=== PATIENT | female | born 1970 | race Caucasian/White ===

== ENCOUNTER 2021-02-28 09:25 | Inpatient (IN) | payer BC ==
[2021-02-28] VITALS (24 sets, daily range): BP systolic 96–119; BP diastolic 57–83
[~2021-02-28] VITALS: Ht 154.9 cm; Wt 81.4 kg
--- NOTE | 2021-02-28 09:40 | NUR ---
Dr. Dwyer at bedside.
--- NOTE | 2021-02-28 09:40 | NUR ---
Bleeding stopped when patient received in room 4.
[2021-02-28] MEDS ORDERED: morphine 4 MG/ML inj SYRINge IV PRN ×2 (09:50→10:50)
[2021-02-28] MEDS ORDERED: morphine 2 MG/ML inj. syringe IV PRN ×2 (09:50→10:50)
[2021-02-28] MEDS ORDERED: magnesium hydroxide 30ml (MOM) UD suspension PO PRN (09:50)
[2021-02-28] MEDS ORDERED: acetaminophen 325mg tablet PO PRN ×2 (09:50)
[2021-02-28] MEDS ORDERED: potassium Cl 20 mEq SR tablet PO PRN ×2 (09:50)
[2021-02-28] MEDS ORDERED: ondansetron/PF 4mg/2ml inj IV PRN ×2 (09:50→10:50)
--- NOTE | 2021-02-28 09:52 | NUR ---
no use of femstop per Dr. Dwyer just direct pressure when starts bleeding again,pt to OR this afternoon per MD.Change dressing to dry kerlix.
[2021-02-28 09:53] LABS: BASOPHILS # (AUTO) 0.1 X10'3 (0-0.2); BASOPHILS % (AUTO) 0.4 % (0-1); EOSINOPHILS % (AUTO) 0.3 % (0-6); HEMATOCRIT 27.8 % (35.0-45.0); HEMOGLOBIN 8.9 g/dl (12.0-16.0); LYMPHOCYTES # (AUTO) 0.7 X10'3 (1.1-4.8); MEAN CORPUSCULAR HEMOGLOBIN 25.6 PG (27.0-31.0); MEAN CORPUSCULAR HGB CONC 32.2 g/dL (33.0-36.5); MEAN CORPUSCULAR VOLUME 79.7 FL (78-98); MEAN PLATELET VOLUME 9.2 FL (7.4-10.4); MONOCYTES # (AUTO) 0.4 X10'3 (0-0.9); MONOCYTES % (AUTO) 3.6 % (2-12); NEUTROPHILS % (AUTO) 89.7 % (42-75); PLATELET COUNT 300 X10'3 (140-440); RED BLOOD COUNT 3.49 X10'6 (4.20-5.60); RED CELL DISTRIBUTION WIDTH 20.5 % (11.5-14.5); WHITE BLOOD COUNT 12.3 X10'3 (4.5-11.0)
[2021-02-28 10:00] LABS: ALANINE AMINOTRANSFERASE 18 U/L (12-78); ALBUMIN 3.1 G/DL (3.4-5.0); ALBUMIN/GLOBULIN RATIO 0.9 (1.1-1.5); ALKALINE PHOSPHATASE 78 IU/L (46-116); ANION GAP 9 (8-16); ASPARTATE AMINO TRANSFERASE 18 U/L (10-37); BILIRUBIN,TOTAL 0.5 MG/DL (0.1-1.0); BLOOD UREA NITROGEN 17 MG/DL (7-18); BUN/CREATININE RATIO 14.5 (6.6-38.0); CALCIUM 10.5 MG/DL (8.5-10.1); CHLORIDE 106 MMOL/L (99-107); CREATININE 1.17 MG/DL (0.40-0.90); GLUCOSE 219 MG/DL (70-104); POTASSIUM 4.3 MMOL/L (3.5-5.1); SODIUM 138 MMOL/L (135-145); TOTAL CARBON DIOXIDE 22.9 MMOL/L (24-32); TOTAL PROTEIN 6.4 G/DL (6.4-8.2); eGFR 49 ML/MIN
--- NOTE | 2021-02-28 10:35 | NUR ---
EMERGENCY COMMUNICATIONS OFFICERSASHA HOBSON called confirmed sx at noon.
[2021-02-28] MEDS ORDERED: hydrALAZINE 20mg/ml inj. IV PRN (10:50)
[2021-02-28] MEDS ORDERED: fentaNYL/PF 50MCG/1 ML 2ML syringe IV PRN ×2 (10:50)
[2021-02-28] MEDS ORDERED: labetalol 20mg/4ml (5mg/ml) syringe IV PRN (10:50)
[2021-02-28] MEDS ORDERED: ringers solution, lacted 1,000 ML IV ONE (10:50)
[2021-02-28] MEDS ORDERED: ringers solution, lacted 1,000 ML IV SCH (10:50)
[2021-02-28 10:57] LABS: ANISOCYTOSIS 3+; MICROCYTOSIS 1+; PLATELET ESTIMATE NORMAL
[2021-02-28 10:58] LABS: BURR CELLS FEW; HYPOCHROMASIA 1+; SCHISTOCYTES FEW
[2021-02-28 10:59] LABS: ROULEAUX 1+
[2021-02-28] MEDS ORDERED: fentaNYL/PF 50MCG/1 ML 2ML syringe ONE (11:24)
[2021-02-28] MEDS ORDERED: etomidate 2mg/ml inj. ONE (11:25)
[2021-02-28] MEDS ORDERED: albumin (Human) 5% 250ml 250 ML IV ONE ×4 (11:25→12:26)
[2021-02-28] MEDS ORDERED: rocuronium 10mg/ml inj IV ONE (11:26)
[2021-02-28] MEDS ORDERED: ondansetron/PF 4mg/2ml inj ONE (11:26)
[2021-02-28] MEDS ORDERED: heparin 10,000 units/1 ML INJ ONE (11:32)
[2021-02-28] MEDS ORDERED: LIDOcaine 1% (10mg/ml) 2ml vial ONE (11:33)
--- NOTE | 2021-02-28 11:38 | NUR ---
YANNI called to Alla Jarquin RN.
--- NOTE | 2021-02-28 11:39 | NUR ---
placed a jensen/per Dr. Dwyer order,patient tolerated well.
[2021-02-28] MEDS ORDERED: ATOR40TA72 PO (12:11)
[2021-02-28] MEDS ORDERED: CARV3.1244 PO (12:11)
[2021-02-28] MEDS ORDERED: LISI10TA27 PO (12:11)
[2021-02-28] MEDS ORDERED: PANT40TA54 PO (12:11)
[2021-02-28] MEDS ORDERED: APIX5TAB3 PO (12:11)
[2021-02-28] MEDS ORDERED: neostigmine methylsulfate 1 MG/ML 10ml vial ONE (12:43)
[2021-02-28] MEDS ORDERED: glycopyrrolate 0.2mg/ml inj ONE (12:43)
[2021-02-28] MEDS ORDERED: naloxone 0.4 mg/ml inj ONE (12:57)
--- NOTE | 2021-02-28 13:08 | NUR ---
Received from OR via , accompanied by Anesthesiologist DR SEARS and report given by Anesthesiolgist. PT PRESENTS WITH CENTRAL LINE, ART LINE RIGHT WRIST, WOUND VAC TO LEFT GROIN, VSS. Addendum: 02/28/21 at 1321 by Mayra Bullock RN, RN Amended: Links added.
--- NOTE | 2021-02-28 14:56 | NUR ---
OK PER DR SUNNI THOMPSON [facility] NOTIFIED. Addendum: 02/28/21 at 1456 by Mayra Bullock RN, RN Amended: Links added.
--- NOTE | 2021-02-28 16:38 | NUR ---
Report called to receiving nurse WALE BAEZ. Transferred via HOSPITAL BED TO ROOM 3019O. PT REPORTS THAT SHE HAS NO PERSONAL Belongings AT THIS TIME. Special Issues communicated to receiving nurse. Addendum: 02/28/21 at 1647 by Mayra Bullock RN RN Amended: Links added.
[2021-03-01 02:00] VITALS: BP 97/52
[2021-03-01 06:00] VITALS: BP 115/68
[2021-03-01 07:54] LABS: MAGNESIUM 1.7 MG/DL (1.5-2.4); POTASSIUM 4.4 MMOL/L (3.5-5.1)
[2021-03-01] MEDS: K and/or MAG REPLACEMENT MC SCH ×2 (08:00→19:42)
[2021-03-01 11:00] VITALS: BP 110/62
[2021-03-01] MEDS: pantoprazole 40mg Tablet.DR PO SCH (11:12)
[2021-03-01] MEDS: apixaban 5mg tablet PO SCH ×2 (11:12→19:42)
[2021-03-01] MEDS: atorvastatin 20mg tablet PO SCH (11:12)
--- NOTE | 2021-03-01 11:32 | NUR ---
Initial: Pt admitted w/ post op complications from femoral stent placement which occurred in January, continues to have bleeding from groin per EMR. Pt underwent L femoral artery repair and debridement w/ wound vac placement. Pending H&P at this time. Pt currently on Clear liquid diet w/ 0% intake of first meal. Would recommend obtaining A1C and lipid panel to better determine appropriate diet, otherwise recommend advancing to Regular diet as tolerated. Pt may also benefit from Christo shakes/smoothies once diet advanced to at least full liquids. Limited nutrition interventions at this time given diet order, will continue to monitor and make recommendations as appropriate. Recs: 1. Advance diet as tolerated to Regular diet 2. Obtain lipid panel and A1C 3. Consider Christo smoothies once diet advanced 4. Bowel care per rx 5. Scaled wt this admit, subsequent weekly wt Addendum: 03/01/21 at [address] Amended: Links added.
[2021-03-01 15:00] VITALS: BP 113/62
[2021-03-01 18:00] VITALS: BP 104/52
--- NOTE | 2021-03-01 19:18 | NUR ---
PATIENT DISCHARGE HOME WITH HOME OXYGEN . DISCHARGE WITH NO DISTRESS.
[2021-03-01] MEDS: carVEDilol 3.125mg tablet PO SCH (19:42)
[2021-03-02 06:00] VITALS: BP 123/78
[2021-03-02 06:40] LABS: MAGNESIUM 1.7 MG/DL (1.5-2.4); POTASSIUM 3.9 MMOL/L (3.5-5.1)
[2021-03-02] MEDS: pantoprazole 40mg Tablet.DR PO SCH (08:06)
[2021-03-02] MEDS: atorvastatin 20mg tablet PO SCH (08:07)
[2021-03-02] MEDS: apixaban 5mg tablet PO SCH ×2 (08:07→19:32)
[2021-03-02] MEDS: carVEDilol 3.125mg tablet PO SCH ×2 (08:07→19:33)
[2021-03-02] MEDS: lisinopril 10 MG tablet PO SCH (08:08)
[2021-03-02 11:00] VITALS: BP 126/69
--- NOTE | 2021-03-02 14:18 | NUR ---
WOUND VAC EDUCATION PROVIDED BY WOUND CARE 1. Patient instructed to call the Wound Center or their Home Health Agency immediately if: * They notice a change in the color or amount of the fluid in the canister. * Their wound looks more red than usual or has a foul smell. * The skin around their wound looks reddened or irritated. * The dressing feels loose or appears to be loose. * They experience any increase or changes in their pain. * The alarm will not turn off. 2. Patient instructed that they should not be disconnected from suction for more than 2 hours at a time. * If they are not able to get the suction back on, they need to remove the dressing and take all of the foam out of the wound. * Then moisten sterile gauze with normal saline and place on/in the wound. * Change the dressing once a day until arrangements have been made to replace the wound vac dressing. 3. Patient instructed to turn the wound vac machine OFF and call 911 or go to the ED immediately if their canister fills rapidly with blood. 4. If any of these occur while in the hospital tell a nurse immediately. Addendum: 03/02/21 at 1426 by iPna Moore RN Amended: Links added.
[2021-03-02 15:00] VITALS: BP 110/69
[2021-03-02 18:00] VITALS: BP 117/68
[2021-03-02] MEDS: K and/or MAG REPLACEMENT MC SCH (19:42)
[2021-03-02 22:00] VITALS: BP 114/60
[2021-03-03 02:00] VITALS: BP 122/69
[2021-03-03 06:00] VITALS: BP 130/86
[2021-03-03] MEDS: atorvastatin 20mg tablet PO SCH (08:27)
[2021-03-03] MEDS: apixaban 5mg tablet PO SCH ×2 (08:27→19:22)
[2021-03-03] MEDS: pantoprazole 40mg Tablet.DR PO SCH (08:27)
[2021-03-03] MEDS: carVEDilol 3.125mg tablet PO SCH ×2 (08:27→19:23)
[2021-03-03] MEDS: lisinopril 10 MG tablet PO SCH (08:28)
[2021-03-03 11:00] VITALS: BP 125/76
[2021-03-03 18:00] VITALS: BP 117/64
[2021-03-03 22:00] VITALS: BP 122/58
[2021-03-03] MEDS ORDERED: potassium Cl 20 mEq SR tablet PO PRN (22:10)
[2021-03-03] MEDS ORDERED: potassium Cl 40MEQ/1/2NS 520ml 520 ML IV PRN (22:10)
[2021-03-03] MEDS ORDERED: potassium CL 10mEq/100ml bag 100 ML IV PRN (22:15)
[2021-03-04 02:00] VITALS: BP 118/68
[2021-03-04 07:00] VITALS: BP 122/77
--- NOTE | 2021-03-04 07:00 | NUR ---
Patient in room PCU 3017. I have received report from Neda and had the opportunity to ask questions and assume patient care.
[2021-03-04] MEDS: lisinopril 10 MG tablet PO SCH (08:27)
[2021-03-04] MEDS: atorvastatin 20mg tablet PO SCH (08:27)
[2021-03-04] MEDS: carVEDilol 3.125mg tablet PO SCH ×2 (08:27→20:21)
[2021-03-04] MEDS: pantoprazole 40mg Tablet.DR PO SCH (08:27)
[2021-03-04] MEDS: apixaban 5mg tablet PO SCH ×2 (08:28→20:21)
[2021-03-04 11:00] VITALS: BP 112/67
[2021-03-04 15:00] VITALS: BP 111/68
[2021-03-04 18:00] VITALS: BP 112/62
--- NOTE | 2021-03-04 19:11 | NUR ---
Problems reprioritized. Patient report given, questions answered & plan of care reviewed with
[2021-03-04 22:00] VITALS: BP 113/68
[2021-03-05 02:00] VITALS: BP 117/67
--- NOTE | 2021-03-05 06:47 | NUR ---
Patient in room PCU 3017. I have received report from Neda and had the opportunity to ask questions and assume patient care.
[2021-03-05 07:00] VITALS: BP 109/65
[2021-03-05] MEDS: apixaban 5mg tablet PO SCH ×2 (10:10→20:01)
[2021-03-05] MEDS: pantoprazole 40mg Tablet.DR PO SCH (10:10)
[2021-03-05] MEDS: carVEDilol 3.125mg tablet PO SCH ×2 (10:11→20:01)
[2021-03-05] MEDS: atorvastatin 20mg tablet PO SCH (10:11)
[2021-03-05] MEDS: lisinopril 10 MG tablet PO SCH (10:12)
[2021-03-05 11:00] VITALS: BP 147/65
--- NOTE | 2021-03-05 12:44 | NUR ---
Reassessment: Pt advanced to Mechanical soft diet 03/01 and has had mostly 75% intake of meals meeting est nutrient needs at this time. No BM documented w/ PRN bowel care available. No nutrition intervention implemented at this time, will continue to monitor. Recs: 1. Continue Mechanical soft diet as tolerated 2. Obtain lipid panel and A1C 3. Bowel care per rx 4. Scaled wt this admit, subsequent weekly wt Addendum: 03/05/21 at [address] Amended: Links added.
[2021-03-05 15:00] VITALS: BP 138/64
[2021-03-05 18:00] VITALS: BP 105/63
[2021-03-05 22:00] VITALS: BP 118/42
[2021-03-06 02:00] VITALS: BP 107/60
--- NOTE | 2021-03-06 06:55 | NUR ---
Patient in room PCU 3017. I have received report from Neda and had the opportunity to ask questions and assume patient care.
[2021-03-06 07:00] VITALS: BP 113/60
[2021-03-06] MEDS: carVEDilol 3.125mg tablet PO SCH ×2 (08:21→19:47)
[2021-03-06] MEDS: pantoprazole 40mg Tablet.DR PO SCH (08:21)
[2021-03-06] MEDS: atorvastatin 20mg tablet PO SCH (08:21)
[2021-03-06] MEDS: apixaban 5mg tablet PO SCH ×2 (08:21→19:47)
[2021-03-06] MEDS: lisinopril 10 MG tablet PO SCH (08:23)
[2021-03-06 11:00] VITALS: BP 118/70
[2021-03-06 15:00] VITALS: BP 105/60
[2021-03-06 15:00] LABS: BASOPHILS % (AUTO) 0.8 % (0-1); EOSINOPHILS # (AUTO) 0.2 X10'3 (0-0.9); EOSINOPHILS % (AUTO) 3.8 % (0-6); HEMATOCRIT 26.9 % (35.0-45.0); HEMOGLOBIN 8.4 g/dl (12.0-16.0); MEAN CORPUSCULAR HEMOGLOBIN 24.8 PG (27.0-31.0); MEAN CORPUSCULAR HGB CONC 31.3 g/dL (33.0-36.5); MEAN CORPUSCULAR VOLUME 79.4 FL (78-98); MEAN PLATELET VOLUME 9.7 FL (7.4-10.4); MONOCYTES # (AUTO) 0.4 X10'3 (0-0.9); MONOCYTES % (AUTO) 7.4 % (2-12); NEUTROPHILS # (AUTO) 3.6 X10'3 (1.8-7.7); PLATELET COUNT 203 X10'3 (140-440); RED BLOOD COUNT 3.38 X10'6 (4.20-5.60); RED CELL DISTRIBUTION WIDTH 20.8 % (11.5-14.5); WHITE BLOOD COUNT 5.1 X10'3 (4.5-11.0)
[2021-03-06 15:08] LABS: ALBUMIN 3.1 G/DL (3.4-5.0); ANION GAP 5 (8-16); BLOOD UREA NITROGEN 11 MG/DL (7-18); BUN/CREATININE RATIO 9.9 (6.6-38.0); CALCIUM 10.2 MG/DL (8.5-10.1); CHLORIDE 109 MMOL/L (99-107); CREATININE 1.11 MG/DL (0.40-0.90); GLUCOSE 128 MG/DL (70-104); POTASSIUM 4.1 MMOL/L (3.5-5.1); SODIUM 141 MMOL/L (135-145); TOTAL CARBON DIOXIDE 26.7 MMOL/L (24-32); eGFR 52 ML/MIN
[2021-03-06 15:27] LABS: PLATELET ESTIMATE NORMAL
[2021-03-06 15:28] LABS: ANISOCYTOSIS 3+; ELLIPTOCYTES 1+; HYPOCHROMASIA 1+; MICROCYTOSIS 1+; POLYCHROMASIA FEW; STOMATOCYTES FEW; TARGET CELLS FEW
[2021-03-06 18:00] VITALS: BP 138/81
--- NOTE | 2021-03-06 18:50 | NUR ---
Patient report received plan of care reviewed with Veronica BAEZ
[2021-03-06 22:00] VITALS: BP 110/60
[2021-03-07 03:00] VITALS: BP 104/57
[2021-03-07 07:00] VITALS: BP 108/67
[2021-03-07 07:21] LABS: BASOPHILS # (AUTO) 0.1 X10'3 (0-0.2); BASOPHILS % (AUTO) 1.1 % (0-1); EOSINOPHILS # (AUTO) 0.3 X10'3 (0-0.9); EOSINOPHILS % (AUTO) 4.8 % (0-6); HEMATOCRIT 27.3 % (35.0-45.0); HEMOGLOBIN 8.6 g/dl (12.0-16.0); LYMPHOCYTES # (AUTO) 1.1 X10'3 (1.1-4.8); LYMPHOCYTES % (AUTO) 21.4 % (21-51); MEAN CORPUSCULAR HGB CONC 31.6 g/dL (33.0-36.5); MEAN CORPUSCULAR VOLUME 79.2 FL (78-98); MEAN PLATELET VOLUME 9.8 FL (7.4-10.4); MONOCYTES # (AUTO) 0.3 X10'3 (0-0.9); MONOCYTES % (AUTO) 6.3 % (2-12); NEUTROPHILS # (AUTO) 3.5 X10'3 (1.8-7.7); NEUTROPHILS % (AUTO) 66.4 % (42-75); PLATELET COUNT 200 X10'3 (140-440); RED BLOOD COUNT 3.45 X10'6 (4.20-5.60); RED CELL DISTRIBUTION WIDTH 21.8 % (11.5-14.5); WHITE BLOOD COUNT 5.3 X10'3 (4.5-11.0)
[2021-03-07 07:31] LABS: ALANINE AMINOTRANSFERASE 18 U/L (12-78); ALKALINE PHOSPHATASE 75 IU/L (46-116); ANION GAP 7 (8-16); ASPARTATE AMINO TRANSFERASE 8 U/L (10-37); BILIRUBIN,TOTAL 0.3 MG/DL (0.1-1.0); BLOOD UREA NITROGEN 13 MG/DL (7-18); BUN/CREATININE RATIO 13.4 (6.6-38.0); CALCIUM 10.2 MG/DL (8.5-10.1); CHLORIDE 109 MMOL/L (99-107); CREATININE 0.97 MG/DL (0.40-0.90); GLUCOSE 122 MG/DL (70-104); SODIUM 142 MMOL/L (135-145); TOTAL CARBON DIOXIDE 25.7 MMOL/L (24-32); TOTAL PROTEIN 6.1 G/DL (6.4-8.2); eGFR 60 ML/MIN
[2021-03-07] MEDS: apixaban 5mg tablet PO SCH (07:57)
[2021-03-07] MEDS: atorvastatin 20mg tablet PO SCH (07:57)
[2021-03-07] MEDS: pantoprazole 40mg Tablet.DR PO SCH (07:57)
[2021-03-07] MEDS: carVEDilol 3.125mg tablet PO SCH (07:58)
[2021-03-07] MEDS: lisinopril 10 MG tablet PO SCH (07:58)
[2021-03-07 09:07] LABS: ANISOCYTOSIS 3+; HYPOCHROMASIA 1+; MICROCYTOSIS 1+; PLATELET ESTIMATE NORMAL
[2021-03-07 09:08] LABS: LARGE PLATELETS FEW
[2021-03-07 11:00] VITALS: BP 120/69
[2021-03-07] MEDS ORDERED: ACET-1008 PO (11:46)
[2021-03-07 15:00] VITALS: BP 147/86
--- NOTE | 2021-03-07 18:40 | NUR ---
Patient d/c to go home with d/c instructions/directions printed and verbally given to both patient and her daughter. They both verbalizes understanding and denied having any question for television writer. Patient and daughter are both aware to schedule follow up appointment with patient's PCP. Patient will go to wound care clinic for her wound care appointment per case assembler. Indwelling urinary catheter removed. Patient post voided X 1 large amount in the toilet about 5 minutes post catheter removal. 900ml clear yellow urinary in urinary drainage bag at the time of catheter removal. Right EJ and crystallographer removed. Patient's own wound vac connected. She was transported with all her personal belonging, accompanied by daughter with no distress noted.
[2021-03-07] MEDS ORDERED: pantoprazole 40MG/D5 100ML BAG 100 ML IV SCH (20:00)
== END 2021-03-07 17:30 | disposition home or self-care (01) | DRG 902 ==
LOC: ER 09:29 → ED HOLD 09:53 → PCU 3S 17:05 → UNDODISIN 03-02 12:25
PROVIDERS: ADMIT Surgery; ATTEND Internal Medicine
PROC: 0JBC0ZZ Excision of Pelvic Region Subcutaneous Tissue and Fascia, Open Approach (ICD-10-PCS; 2021-02-28)
PROC: 04QL0ZZ Repair Left Femoral Artery, Open Approach (ICD-10-PCS; principal; 2021-02-28 12:05)
DX: I97.630 Postprocedural hematoma of a circulatory system organ or structure following a cardiac catheterization (principal); D62 Acute posthemorrhagic anemia; I11.0 Hypertensive heart disease with heart failure; I25.10 Atherosclerotic heart disease of native coronary artery without angina pectoris; I50.9 Heart failure, unspecified; Y84.0 Cardiac catheterization as the cause of abnormal reaction of the patient, or of later complication, without mention of misadventure at the time of the procedure; Y92.89 Other specified places as the place of occurrence of the external cause; Z86.73 Personal history of transient ischemic attack (TIA), and cerebral infarction without residual deficits
CPT/HCPCS: 99285; Z7506; Z7508; 36415; 80048; 80053; 82948; 83735; 83970; 84132; 85008; 85025; 85610; 86870; 86880; 86885; 86900; 86901; 86902; 86905; 86922; 87081; 93005; 97112; 97116; 97530; A4618; A6550; A7000; G0378; J1644; J2310; J2405; J2710; J3010; J3490; J7040; J7120; P9045